=== PATIENT | male | born 1965 | race Caucasian/White ===

== ENCOUNTER 2019-09-17 12:51 | Emergency (ER) | payer OTHER, SELFPAY ==
[2019-09-17 12:54] VITALS: BP 167/115; PULSE 98; RESP 18; TEMP 37.3; O2SAT 99
--- NOTE | 2019-09-17 13:00 | ED.NAVMDI ---
HPI - Nausea/Vomiting/Diarrhea General Chief complaint: Nausea/Vomiting/Diarrhea Stated complaint: abd pain/diarrhea Time Seen by Provider: 09/17/19 13:08 Source: patient and RN notes reviewed Mode of arrival: ambulatory Limitations: no limitations History of Present Illness HPI Narrative: 54 year old male presents to [facility] care with states complaints of diarrhea. nausea with no vomiting since around noon yesterday. Patient states that he has no acute pain to his abdomen. denies any vomiting but states that nausea is continuous, and he reports 12 stools in past 24 hours. Patient states that he felt some dizziness and headache yesterday also, denies any shortness of breath, acute cough, recent travel, and denies any fevers, chills or sweats. Patient has history of hypertension and hypothyroidism but he quit taking his medication several years ago, states has no PCP. Patient also admits to past history of alcohol use and opiate use but states no alcohol for several years and only pain medication was 6 months ago with rotator cuff repair on right shoulder otherwise no use of any opiates. MD elicited complaint: nausea Onset (ago): day(s) (1) Description of vomiting: other (no vomiting nausea) Description of diarrhea: semi-solid Associated nausea: Yes Associated abdominal pain: No Location of pain: other (mid abdominal colicky) Radiation: other (mid abdominal cramping with diarrhea) Pain consistency: colicky (with diarrhea) Quality: cramping Exacerbating factors: other (diarrhea) Relieving factors: medication (immodium has helped some) Associated symptoms: headaches, loss of appetite, nausea/vomiting (nausea only) and other (dizziness) Treatment prior to arrival: immodium Related Data Allergies Allergy/AdvReac Type Severity Reaction Status Date / Time No Known Allergies Allergy Verified 09/17/19 13:08 Review of Systems Review of Systems: Narrative: CONSTITUTIONAL: Denies any fever, chills, or sweats. EYES: Denies visual changes, redness, or discharge. ENT: Denies rhinorrhea, congestion, sore throat, or otalgia. CARDIOVASCULAR: Denies chest pain, palpitations, or edema. RESPIRATORY: Denies cough or dyspnea. GASTROINTESTINAL: states crampy abdominal discomfort only when has stools, nausea,no vomiting, positive for frequent diarrhea the past 24 hours GENITOURINARY: Denies dysuria or hematuria. SKIN: Denies rash or itching. MUSCULOSKELETAL: Denies back pain, joint pain, or myalgia. NEUROLOGIC: positive headache and dizziness yesterday, denies numbness, or weakness. PSYCHIATRIC: Denies anxiety or depression. All systems reviewed & are unremarkable except as noted in HPI and below PMFSH Past Medical History Medical History (Updated 09/17/19 @ 15:01 by Carla Ramos NP) Hypertension Hypothyroid Surgical History Surgical History (Updated 09/17/19 @ 13:26 by Carla Ramos NP) History of arthroscopy of right shoulder Hx of cholecystectomy Social History Social History (Updated 09/17/19 @ 13:26 by Carla Ramos NP) Smoking packs per day: 1 Smoking cigarettes per day: 20.0 Years smoked: 3 Smoking pack-years: 3.00 Smoking status: Current every day smoker Alcohol intake: former Substance use: former Substance use type: opiates Living arrangements: with family Gender identity (if verbalized by the patient): Male Comments At time of signature, agree with nursing past medical, surgical, social history. There is no relevant family history pertinent to the presenting complaint Exam Narrative: Exam Narrative: GENERAL: ill-appearing, well-nourished, and in no acute distress. HEAD: Normocephalic, atraumatic. EYES: PERRLA and EOMI. ENT: Nares clear, no rhinorrhea or epistaxis. Mucous membranes moist.TM's normal with good light reflex, throat pink with no swelling, lesions, or exudate NECK: Supple.no lymphadenopathy CHEST: Clear to auscultation. No respiratory distress.SAO2 99% on room air HEART: Regul
[2019-09-17 13:50] VITALS: BP 170/102
== END 2019-09-17 13:35 | disposition home or self-care (01) ==
PROVIDERS: Emergency Provider Registered Nurse
DX: K52.9 Noninfective gastroenteritis and colitis, unspecified (principal); F17.210 Nicotine dependence, cigarettes, uncomplicated; I10 Essential (primary) hypertension; E03.9 Hypothyroidism, unspecified
CPT/HCPCS: 99213; G0463

== ENCOUNTER 2025-04-09 13:52 | Emergency (ER) | payer BC, SELFPAY ==
--- OUTSIDE RECORDS SUMMARY | 2025-04-06 04:20 | XMS_ITS ---
Author Organization [facility] Address [address] [place] [address] Care Team Providers [employer] Sales Representative Name Role Phone Latasha Esqueda Primary Care Provider Reva Belcher Unavailable [phone] [employer] software, [facility] Unavailable U Bal Ramírez Unavailable [phone] Allergies Allergen (clinical drug ingredient) Drug/Non Drug Allergy documented on EMR Reaction Allergy Type Onset Date Status atorvastatin Atorvastatin Calcium Unknown Drug Allergy Active REASON FOR VISIT CRU Medications Medication SIG (Take, Route, Frequency, Duration) Notes Start Date End Date Status SEROquel 50 MG 1 tablet Orally at bedtime pt states that he takes this when needed Active Cyproheptadine HCl 4 MG 1 tablet Orally Twice a day Not-Taking Nicotine Step 1 21 MG/24HR 1 patch to skin Transdermal Once a day; Duration: 30 day(s) 06/17/2017 Not-Taking Wellbutrin 100 MG 1 tablet Orally every morning; Duration: 30 days 10/11/2016 Not-Taking Vivitrol 380 MG 4 ml Intramuscular once; Duration: 1 dose 02/26/2017 Not-Taking Lisinopril 10 MG 1 tablet Orally Once a day; Duration: 30 day(s) 11/18/2016 Not-Taking Melatonin 5 MG 1 tablet at bedtime as needed Orally Once a day; Duration: 30 days 04/06/2025 Active Meloxicam 15 MG 1 tablet Orally Once a day with food; Duration: 30 day(s) 10/21/2017 Not-Taking Nicotine 21 MG/24HR 1 patch to skin. Transdermal Once a day, removing at bedtime; Duration: 28 days 04/06/2025 Active hydrOXYzine Pamoate 25 MG 1-2 capsules Orally every 4 hours as needed for anxiety, agitation, or inability to sleep. Do not give within 4 hours of diphenhydramine.; Duration: 30 days 04/06/2025 Active Multi Vitamin - 1 tablet Orally Once a day; Duration: 30 days 04/06/2025 Active Nicotine Polacrilex 4 MG 1 lozenge as needed for nicotine cravings Mouth/Throat Up to once per hour (maximum of 15 lozenges per day); Duration: 7 days 04/06/2025 Active Levothyroxine Sodium 25 MCG 1 tablet on an empty stomach in the morning Orally Once a day; Duration: 30 day(s) 08/11/2017 Not-Taking Social History Tobacco Use: Social History Observation Description Date Details (start date - stop date) Never Smoker NA - NA Tobacco Control (Standard) Question Answer Notes Tobacco use: Nonsmoker Section Notes: Patient reports he had been 25 years before it ended in divorce 3 months ago. Problems Problem Type SNOMED Code ICD Code Onset Dates Problem Status W/U Status Risk Notes Problem Physical examination, complete (82301825) Adult general medical examination (Z00.00) Active confirmed Problem Overweight (847718069) Over weight (E66.3) Active confirmed Vital Signs Weight 178.08 lbs 04/06/2025 Height 70 in 04/06/2025 BMI 25.55 kg/m2 04/06/2025 Blood pressure systolic 138 mm Hg 04/06/20 25 Blood pressure diastolic 90 mm Hg 025 Heart Rate 107 /min 04/06/2025 Oximetry 99 % 04/06/2025 Temperature 98.1 degrees Fahrenheit 04/06/20 25 Respiratory Rate 20 /min 04/06/2025 Encounters Encounter Location Date Provider Diagnosis [place] [address] [facility] [place] [place] [address] 04/06/2025 Bal Pond Adult general medica l examination Z00.00 ; Tobacco dependence F17.200 ; Anxiety F41.9 ; Alcohol use disorder F10.99 ; Hypothyroidism, unspecified type E03.9 ; Essential hypertension I10 and Over weight E66.3 Assessments Encounter Date Diagnosis (ICD Code) Assessment Notes Treatment Notes Treatment Clinical Notes Section Notes 04/06/2025 Adult general medical examination (ICD-10 - Z00.00) Admit to the Mental Health/Crisis Residential Unit and initiate standing/protocol orders: The following PRN medications may be self-administered by patients under the supervision of approved staff or administered by nursing staff: Ibuprofen 200mg, 2-4 tablets by mouth (with food) every 6 hours as needed for pain (unless on lithium). (NOTE: Ibuprofen and acetaminophen may be given together, but alternating is recommended for continuous pain relief. Guaifenesin 400 mg, 1 tablet by mouth every four hours as needed for cough and chest congestion (take with large glass of water). Loratadine 10 mg, 1 tablet by mouth daily as needed for allergies, watery itchy eyes, or sinus drainage. Throat Lozenges, up to 4 tablets by mouth every three to four hours as needed for sore throat. Antacid tablets, 1-2 tablets by mouth every one to two hours as needed for indigestion or heart burn. If the client prefers liquid, could use: Liquid Antacid : 1 ounce by mouth up to four times daily as needed for indigestion or heartburn Omeprazole 20mg, 1 capsule by mouth once daily for 14 days for frequent heartburn (frequent heartburn is more than 2 episodes per week). Do not exceed 14 days. Do not give to client already taking a proton-pump inhibitor: esomeprazole (Nexium), lansoprazole (Prevacid), pantoprazole (Protonix), rabeprazole (Aciphex), dexlansoprazole (Dexilant) Zofran ODT disintegrating (under the tongue) 4 mg, 1-2 tablets every 8 hours as needed for nausea/vomiting. Milk of Magnesia (MOM): 1 ounce (30 milliliters) by mouth every day as needed for constipation. OR Miralax: Stir and fully dissolve 17 grams (1 packet or 1 capful to measured line) in any 4 to 8 ounces of beverage then drink once daily for constipation. Do not use for more than 7 days. OR Docusate 100 mg, 1 capsule twice daily as needed for constipation Hydrocortisone 1% Cream, apply topically (to the skin) to the affected area up to three times daily as needed for itching or inflammation (avoid eyes and genitals). 2% Antifungal Cream, apply topically (to the skin) as directed as needed to affected areas for athlete's foot or jock itch. Triple Antibiotic Ointment, apply topically (to the skin) up to three times daily as needed for minor cuts and scrapes. Carmex or Chapstick, apply topically (to the skin) as needed for chapped lips and skin. Orajel, apply to affected areas as needed for mouth or tooth pain. Lubricating Eye Drops, instill 1-2 drops to the affected eye(s) as needed for dry/irritated eye(s). Hemorrhoid medications, apply to affected area according to directions as needed for hemorrhoid discomfort and itch. Nix (Permethrin 1%) cream 2 ounces, apply topically (to the skin) as directed as needed for head lice. Sunscreen 30 SPF, Apply to exposed skin prior to exposure to sun. The following PRN medications must be approved by nursing staff before self-administration by patients: Diphenhydramine 25 mg, 2 tablets by mouth every 4 hours as needed for allergic reaction or itchy rash. Caution: Do not use hydroxyzine within 4 hours of diphenhydramine and vice versa. Loperamide 2 mg capsules, may give two capsules by mouth for the initial dose, followed by one capsule up to 3 times a day as needed for diarrhea. Acetaminophen 500 mg, 1 - 2 tablets by mouth every six hours as needed for pain. (NOTE: Ibuprofen and acetaminophen may be given together, but alternating is recommended for continuous pain relief). Oxygen-May administer oxygen 2L/min via nasal cannula if O2 saturation is less than 92%, AND client complains of shortness of breath. Target O2 saturation is 94-98%. Caution: Remember too much oxygen can be detrimental to a client with COPD. Oxygen is a drug and should be delivered by trained staff only. Nurses may remove superficial splinters and sutures from skin lacerations. May apply gauze or bandages to any weeping wounds. Contact nursing if there is pus, a foul odor, increased pain/redness/swelli ng, or if soaking through bandages. 04/06/2025 Tobacco dependence (ICD-10 - F17.200) 04/06/2025 Anxiety (ICD-10 - F41.9) 04/06/2025 Alcohol use disorder (ICD-10 - F10.99) 04/06/2025 Hypothyroidism, unspecified type (ICD-10 - E03.9) 04/06/2025 Essential hypertension (ICD-10 - I10) Patient hesitant to restart medication. Will need BPs taken twice daily, morning and night for the next 7 days. Patient needs to follow up with me in 7 days for BP check and educated him on importance of restarting medication if BPs elevated. 04/06/2025 Over weight (ICD-10 - E66.3) 04/06/2025 Other Continue treatment as recommended by [facility] Crisis [facility]idential Unit staff. Encouraged patient to obtain routine medical care with patient's own primary care provider or establish as a patient at [facility] if no current primary care provider. Plan Of Treatment Medication Medication Name Sig Start Date Stop Date Notes SEROquel 50 MG 1 tablet Orally at bedtime pt states that he takes this when needed Melatonin 5 MG 1 tablet at bedtime as needed Orally Once a day; Duration: 30 days 04/06/2025 Nicotine 21 MG/24HR 1 patch to skin. Transdermal Once a day, removing at bedtime; Duration: 28 days 04/06/2025 hydrOXYzine Pamoate 25 MG 1-2 capsules Orally every 4 hours as needed for anxiety, agitation, or inability to sleep. Do not give within 4 hours of diphenhydramine.; Duration: 30 days 04/06/2025 Multi Vitamin - 1 tablet Orally Once a day; Duration: 30 days 04/06/2025 Nicotine Polacrilex 4 MG 1 lozenge as needed for nicotine cravings Mouth/Throat Up to once per hour (maximum of 15 lozenges per day); Duration: 7 days 04/06/2025 Treatment Notes Assessment Notes Adult general medical examination Admit to the Mental Health/Crisis Residential Unit and initiate standing/protocol orders: The following PRN medications may be self-administered by patients under the supervision of approved staff or administered by nursing staff: Ibuprofen 200mg, 2-4 tablets by mouth (with food) every 6 hours as needed for pain (unless on lithium). (NOTE: Ibuprofen and acetaminophen may be given together, but alternating is recommended for continuous pain relief. Guaifenesin 400 mg, 1 tablet by mouth every four hours as needed for cough and chest congestion (take with large glass of water). Loratadine 10 mg, 1 tablet by mouth daily as needed for allergies, watery itchy eyes, or sinus drainage. Throat Lozenges, up to 4 tablets by mouth every three to four hours as needed for sore throat. Antacid tablets, 1-2 tablets by mouth every one to two hours as needed for indigestion or heart burn. If the client prefers liquid, could use: Liquid Antacid : 1 ounce by mouth up to four times daily as needed for indigestion or heartburn Omeprazole 20mg, 1 capsule by mouth once daily for 14 days for frequent heartburn (frequent heartburn is more than 2 episodes per week). Do not exceed 14 days. Do not give to client already taking a proton-pump inhibitor: esomeprazole (Nexium), lansoprazole (Prevacid), pantoprazole (Protonix), rabeprazole (Aciphex), dexlansoprazole (Dexilant) Zofran ODT disintegrating (under the tongue) 4 mg, 1-2 tablets every 8 hours as needed for nausea/vomiting. Milk of Magnesia (MOM): 1 ounce (30 milliliters) by mouth every day as needed for constipation. OR Miralax: Stir and fully dissolve 17 grams (1 packet or 1 capful to measured line) in any 4 to 8 ounces of beverage then drink once daily for constipation. Do not use for more than 7 days. OR Docusate 100 mg, 1 capsule twice daily as needed for constipation Hydrocortisone 1% Cream, apply topically (to the skin) to the affected area up to three times daily as needed for itching or inflammation (avoid eyes and genitals). 2% Antifungal Cream, apply topically (to the skin) as directed as needed to affected areas for athlete's foot or jock itch. Triple Antibiotic Ointment, apply topically (to the skin) up to three times daily as needed for minor cuts and scrapes. Carmex or Chapstick, apply topically (to the skin) as needed for chapped lips and skin. Orajel, apply to affected areas as needed for mouth or tooth pain. Lubricating Eye Drops, instill 1-2 drops to the affected eye(s) as needed for dry/irritated eye(s). Hemorrhoid medications, apply to affected area according to directions as needed for hemorrhoid discomfort and itch. Nix (Permethrin 1%) cream 2 ounces, apply topically (to the skin) as directed as needed for head lice. Sunscreen 30 SPF, Apply to exposed skin prior to exposure to sun. The following PRN medications must be approved by nursing staff before self-administration by patients: Diphenhydramine 25 mg, 2 tablets by mouth every 4 hours as needed for allergic reaction or itchy rash. Caution: Do not use hydroxyzine within 4 hours of diphenhydramine and vice versa. Loperamide 2 mg capsules, may give two capsules by mouth for the initial dose, followed by one capsule up to 3 times a day as needed for diarrhea. Acetaminophen 500 mg, 1 - 2 tablets by mouth every six hours as needed for pain. (NOTE: Ibuprofen and acetaminophen may be given together, but alternating is recommended for continuous pain relief). Oxygen-May administer oxygen 2L/min via nasal cannula if O2 saturation is less than 92%, AND client complains of shortness of breath. Target O2 saturation is 94-98%. Caution: Remember too much oxygen can be detrimental to a client with COPD. Oxygen is a drug and should be delivered by trained staff only. Nurses may remove superficial splinters and sutures from skin lacerations. May apply gauze or bandages to any weeping wounds. Contact nursing if there is pus, a foul odor, increased pain/redness/swelling, or if soaking through bandages. Essential hypertension Patient hesitant to restart medication. Will need BPs taken twice daily, morning and night for the next 7 days. Patient needs to follow up with me in 7 days for BP check and educated him on importance of restarting medication if BPs elevated. Other Continue treatment as recommended by [facility] Crisis Res[facility] staff. Encouraged patient to obtain routine medical care with patient's own primary care provider or establish as a patient at [facility] if no current primary care provider. Future Test Test Name Order Date CBC With Differential/Platelet* 04/06/20 CMP 14 Comprehensive Metabolic Panel* QuantiFERON-TB Gold Plus ([id number]) 2024 TSH+Free T4 04/06/2025 Next Appt Details Follow Up: 1 Week, Reason: Provider Name:Bal snow, 04/11/2025 02:00:00 PM, [address], [place], [address], Provider Name:Naye Baldwin Titus ers, 04/13/2025 11:00:00 AM, [address], [place], [address], Progress Notes * Fercho AMANDADOB:1965 ( 59 yo M)Acc No.[id number]:04/06/2025 UNLOCKED PROGRESS NOTE Patient: Fercho GUEVARA Provider: Ester Pond APN :1965 A ge:59 Y S ex:Male Date:04/06/2025 Address:[facility] [address], [facility] Pcp:Latasha Esqueda Check In:09:02 AM [employer] Subjective: * Chief Complaints: * 1 . CRU MH. * HPI: S ummary: Presents for physical as patient is admitted to Residential Unit at [facility]. Patient presents from: [place], lives by himself Concerns of: ETOH for past 10 years, binges Chronic Conditions: HTN, dep, anx, hypothyroid, ETOH use, ulnar neuropathy bilateral Recent Hospitalizations: [place] last week for 2 days for falling in his tub while intoxicated. PCP: denies Psych provider: denies Drug/ETOH use: ETOH usually 6 double shots of fireball. Last time used: yesterday (1 double shot), Friday (3 double shots) Route: oral Previous Tx: [place] years ago Withdrawal s/s: tremors Cigarette/vaping use: 1 PPD Sexual activity: denies Denies SI/HI Patient states that he does not want to take medications and does not believe he needs meds. I nterim History: Emergency room visit Y es. W as hospitalized Y es.? D epression Screening: PHQ-9 L ittle interest or pleasure in doing things S everal days, F eeling down, depressed, or hopeless S everal days, T rouble falling or staying asleep, or sleeping too much S everal days, F eeling tired or having little energy N early every day, P oor appetite or overeating S everal days, F eeling bad about yourself or that you are a failure, or have let yourself or your family down N early every day, T rouble concentrating on things, such as reading the newspaper or watching television N early every day, M oving or speaking so slowly that other people could have noticed; or the opposite, being so fidgety or restless that you have been moving around a lot more than usual S everal days,?Thoughts that you would be better off or of hurting yourself in some way N ot at all, Total Score 1 4, I nterpretation M oderate Depression. I ntervention D epression Screening Findings P ositive, F ollow-Up for Depression P diallo is admitted to a [facility] unit where their mental health is monitored - unit nursing staff have access to this encounter note. S creening: [place] Suicide Severity Rating Scale (LF) D o you want to initiate with S creener form, 1 . Wish to be : Have you wished you were or wished you could go to sleep and not wake up? N o, 2 . Suicidal Thoughts: Have you actually had any thoughts of killing yourself? N o, 6 . Suicide Behavior Question: Have you ever done anything,started to do anything, or prepared to end your life? N o, I nterpretation: L ow Risk. P re[facility] follow-up: Action Plans for Clinical Quality Measures: A dult BMI and follow-up: O ther (see notes). patient to discuss with provider, C olorectal Cancer Screening: D iscussed need for colorectal cancer screening. Patient declined. patient declines, D epression Screening and Follow-up: O ther (see notes). patient to discuss with provider, H IV Screening: D iscussed need for HIV screening. Patient declined. patient declines, T obacco Screening and Cessation: O ther (see notes). patient to discuss with provider. . C SSRS Interpretation and Follow Up Plan: CSSRS Interpretation and Follow Up Plan C SSRS Screen documented using SF Y es, R isk Disposition from SF L ow - No Follow Up Plan Required, F ollow Up Plan N o Follow Up Plan required at this time., T imeframe of Screening T diana.? * ROS: B asic ROS: Denies S eizures. D enies S uicidal Thoughts. ? P sych ROS: Constitutional D enies. E yes D enies. E ars/Nose/Mouth/Throat D enies. R espiratory D enies. C ardiovascular D enies. G I?Denies. G U D enies. M usculoskeletal D enies. N eurological D enies. Integumentary D enies. H ematological/Lymphatic D enies. * Medical History: H ypertension, Gallstones, Depression, Anxiety, Alcohol abuse, Hypothyroidism. * Surgical History: g allbladder removed 2016. * Hospitalization/Major Diagno stic Procedure: [facility] - gallstones 08/2016. * Family History: F ather: . M other: alive. 1 brother(s) , 2 sister(s) . 1 son(s) , 1 daughter(s) - healthy. . father- age 69- kidney failure sister- HTN brother- HTN Patient denies any family history of mental illness or suicide. Patient reports his father drank alcohol daily. * [facility] Social History: L iving Arrangement L iving Arrangement: I ndependent Living, I s this a supportive environment? Y es. A lcohol Use A lcohol Use Frequency: M onthly or less last drink 7 weeks ago. I llicit Substance Usage I llicit Substance Usage: N o. E mployment Status E mployment Status: U nemployed. T obacco Use - do not use T obacco Use: C urrent, T ype of Tobacco: C igarettes, Q uanity per day: U p to .5 pack, D uration: 1 Years, Q uit Attempts in the past: N o, I nterested in quitting: Y es.? P ast Medication Use: D o you use nicotine other than cigarettes?: Yes. T obacco Use: T obacco Control (Standard) T obacco use: N onsmoker. D rugs/Alcohol: D o you smoke marijuana?: Denies. Do you drink alcohol?: Denies. M iscellaneous: M ethod of learning P referred method of learning: D iscussion,Demonstration,Hearing.? P atient reports he had been 25 years before it ended in divorce 3 months ago. * Medications: T aking SEROquel 50 MG Tablet 1 tablet Orally at bedtime , Notes to Pharmacist: pt states that he takes this when needed, Not-Taking Levothyroxine Sodium 25 MCG Tablet 1 tablet on an empty stomach in the morning Orally Once a day , Not-Taking Lisinopril 10 MG Tablet 1 tablet Orally Once a day , Not-Taking Meloxicam 15 MG Tablet 1 tablet Orally Once a day with food , Not-Taking Cyproheptadine HCl 4 MG Tablet 1 tablet Orally Twice a day , Not-Taking Nicotine Step 1 21 MG/24HR Patch 24 Hour 1 patch to skin Transdermal Once a day , Not-Taking Wellbutrin 100 MG Tablet 1 tablet Orally every morning , Not-Taking Vivitrol 380 MG Suspension Reconstituted 4 ml Intramuscular once , Medication List reviewed and reconciled with the patient * Allergies: A torvastatin Calcium. Objective: * Vitals: I nitials: HM, Wt:178.08, Ht: 70, BMI:25.55, BP:138/90, HR:107, Oxygen sat %:99, Temp:98.1, RR:20, Pain scale:5. * Examination: G eneral Examination: GENERAL APPEARANCE: a lert, in no acute distress. HEAD: n ormocephalic, atraumatic. EYES: B OTH EYES, sclera anicteric, pupils equal, round, reactive to light and accommodation , extraocular movement intact (EOMI). EARS B OTH EARS, normal. NOSE: n rajan patent. ORAL CAVITY: m ucosa moist. THROAT: p harynx normal. NECK/THYROID: n christie supple , no thyromegaly. SKIN: w arm and dry, no rashes, no suspicious lesions. HEART: r egular rate and rhythm, S1, S2 normal, no S3, S4, no murmurs, rubs, gallops. LUNGS: r espirations regular and easy, clear to auscultation bilaterally, no wheezes, rales, rhonchi, clear anteriorly and posteriorly, good air movement. ABDOMEN: b owel sounds present, soft, nontender, nondistended, no masses palpable, no organomegaly . EXTREMITIES: n o edema. PERIPHERAL PULSES: 2 + throughout. NEUROLOGIC: n onfocal, gait normal. PSYCH: a ppropriate affect. Assessment: * Assessment: 1. A dult general medical examination - Z00.00 (Primary) 2 . T obacco dependence - F17.200 3 . A nxiety - F41.9 4 . A lcohol use disorder - F10.99 5 . H ypothyroidism, unspecified type - E03.9 6 . Essential hypertension - I10 7 . O cornelio weight - E66.3 Plan: * Treatment: Value Reference Range B AC 0.000 ?LAB: QuantiFERON-TB Gold Plus ([id number]) (Ordered for 04/06/2025) (Collection Date & Time - 04/06/2025) ?LAB: CMP 14 Comprehensive Metabolic Panel* (Ordered for 04/06/2025) (Collection Date & Time - 04/06/2025) ?LAB: CBC With Differential/Platelet* (Ordered for 04/06/2025) (Collection Date & Time - 04/06/2025) ?LAB: 14 Panel Urine Drug Screen (Ordered for 04/06/2025) (Collection Date & Time - 04/06/2025)* Value Reference Range T HC pos * C OC neg * M OP (OPI) neg * A MP neg * M ET neg * B AR neg * B ZO pos * M DMA neg * M TD neg * O XY neg * P CP neg * B UP neg * T CA neg * F TY neg Notes: Admit to the Mental Health/Crisis Residential Unit and initiate standing/protocol orders: The following PRN medications may be self-administered by patients under the supervision of approved staff or administered by nursing staff: * Ibuprofen 200mg, 2-4 tablets by mouth (with food) every 6 hours as needed for pain (unless on lithium). (NOTE: Ibuprofen and acetaminophen may be given together, but alternating is recommended for continuous pain relief. * Guaifenesin 400 mg, 1 tablet by mouth every four hours as needed for cough and chest congestion (take with large glass of water). * Loratadine 10 mg, 1 tablet by mouth daily as needed for allergies, watery itchy eyes, or sinus drainage. * Throat Lozenges, up to 4 tablets by mouth every three to four hours as needed for sore throat. * Antacid tablets, 1-2 tablets by mouth every one to two hours as needed for indigestion or heart burn. If the client prefers liquid, could use: Liquid Antacid : 1 ounce by mouth up to four times dailyas needed for indigestion or heartburn * Omeprazole 20mg, 1 capsule by mouth once daily for 14 days for frequent heartburn (frequent heartburn is more than 2 episodes per week). Do not exceed 14 days. Do not give to client already taking a proton-pump inhibitor: esomeprazole (Nexium), lansoprazole (Prevacid), pantoprazole (Protonix), rabep razole (Aciphex), dexlansoprazole (Dexilant) * Zofran ODT disintegrating (under the tongue) 4 mg, 1-2 tablets every 8 hours as needed for nausea/vomiting. * Milk of Magnesia (MOM): 1 ounce (30 milliliters) by mouth every day as needed for constipation.ORMiralax: Stir and fully dissolve 17 grams (1 packet or 1 capful to measured line) in any 4 to 8 ounces of beverage then drink once daily for constipation. Do not use for more than 7 days.ORDocusate 100 mg, 1 capsule twice daily as needed for constipation * Hydrocortisone 1% Cream, apply topically (to the skin) to the affected area up to three times dailyas needed for itching or inflammation (avoid eyes and genitals). * 2% Antifungal Cream, apply topically (to the skin) as directed as needed to affected areas for athlete's foot or jock itch. * Triple Antibiotic Ointment, apply topically (to the skin) up to three times daily as needed for minor cuts and scrapes. * Carmex or Chapstick, apply topically (to the skin) as needed for chapped lips and skin. * Orajel, apply to affected areas as needed for mouth or tooth pain. * Lubricating Eye Drops, instill 1-2 drops to the affected eye(s) as needed for dry/irritated eye(s). * Hemorrhoid medications, apply to affected area according to directions as needed for hemorrhoid discomfort and itch. * Nix (Permethrin 1%) cream 2 ounces, apply topically (to the skin) as directed as needed for head lice. * Sunscreen 30 SPF, Apply to exposed skin prior to exposure to sun. The following PRN medications must be approved by nursing staff before self- administration by patients: * Diphenhydramine 25 mg, 2 tablets by mouth every 4 hours as needed for allergic reaction or itchy rash.Caution: Do not use hydroxyzine within 4 hours of diphenhydramine and vice versa. * Loperamide 2 mg capsules, may give two capsules by mouth for the initial dose, followed by one capsule up to 3 times a day as needed for diarrhea. * Acetaminophen 500 mg, 1 - 2 tablets by mouth every six hours as needed for pain. (NOTE: Ibuprofen and acetaminophen may be given together, but alternating is recommended for continuous pain relief). * Oxygen-May administer oxygen 2L/min via nasal cannula if O2 saturation is less than 92%, AND clientcomplains of shortness of breath. Target O2 saturation is 94-98%.Caution: Remember too much oxygen can be detrimental to a client with COPD. Oxygen is a drug and should be delivered by trained staff only. Nurses may remove superficial splinters and sutures from skin lacerations. May apply gauze or bandages to any weeping wounds. Contact nursing if there is pus, a foul odor, increased pain/redness/swelling, or if soaking through bandages. ??2.?Hypothyroidism, unspecified type?LAB: TSH+Free T4 (Ordered for 04/06/2025) (Collection Date & Time - 04/06/2025)3.?Essential hypertension? Notes: Patient hesitant to restart medication. Will need BPs taken twice daily, morning and night for the next 7 days. Patient needs to follow up with me in 7 days for BP check and educated him on importance of restarting medication if BPs elevated.??4.?Others? Notes:Continue treatment as recommended by [facility] staff.Encouraged patient to obtain routine medical care with patient's own primary care provider or establish as a patient at [facility] if no current primary care provider.?? * Recommended Wellness and Pre vention Guidelines: * S ector brumfield L ast Done N ext Due A ction Taken N ONCOMPLIANT A lcohol use screening - 1 - - N ONCOMPLIANT A llergy List Verification - 1 - - N ONCOMPLIANT B P control in HTN (140/90) 0 11/18/2016 1 - - N ONCOMPLIANT B hermes Mass Index - 1 - - N ONCOMPLIANT C holesterol screen (genl pop) 0 07/28/2017 1 - - N ONCOMPLIANT D epression followup 1 1 - - N ONCOMPLIANT H IV screening - 1 - - N ONCOMPLIANT I nfluenza vaccine (over 50) - 1 - - N ONCOMPLIANT S moking cessation intervention 1 08/18/2016 1 - - * Procedure Codes: 3 008F BODY MASS INDEX DOCD * Preventive Medicine: Counseling: S MOKING: P atient counselled on the dangers of tobacco use and urged to quit. 1 .. C are goal follow-up plan: B [facility] management provided Y es,?Above Normal BMI Follow-up L ifestyle education regarding diet. * Follow Up: 1 Week * * Electronic signature of Jose Elias Pond on 04/09/2025 at 01:54 PM CDT Sign off status: Pending * Provider: Ester Pond APN Date: Generated for Ellis morales/Wiliam/You on: 01:54 PM CDT History and Physical Notes * HPI (History of Present Illness) Category Sub-Category Detail Notes Category Not es Interim History Was hospitalized Yes Emergency room visit Yes Depression Screening PHQ-9 Little inte rest or pleasure in doing things: Several days Feeling down, depressed, or hopeless: Se veral days Trouble falling or staying asleep, or sl eeping too much: Several days Feeling tired or having little energy: N early every day Poor appetite or overeating: Several day s Feeling bad about yourself o r that you are a failure, or have let yourself or your family down: Nearly every day Trouble concentrating on thi ngs, such as reading the newspaper or watching television: Nearly every day Moving or speaking so slowly that other people could have noticed; or the opposite, being so fidgety or restless that you have been moving around a lot more than usual: Several days Thoughts that you would be b yajaira off or of hurting yourself in some way: Not at all Total Score: 14 Interpretation: Moderate Depression Intervention Depression Screening Findings: P ositive Follow-Up for Depression: Pieter gonzalez is admitted to a [place] residential unit where their mental health is monitored - unit nursing staff have access to this encounter note Summary Presents for physical as patient is admitted to Residential Unit at [place]. Patient presents from: [place], lives by himself Concerns of: ETOH for past 10 years, binges Chronic Conditions: HTN, dep, anx, hypothyroid, ETOH use, ulnar neuropathy bilateral Recent Hospitalizations: [place] last week for 2 days for falling in his tub while intoxicated. PCP: denies Psych provider: denies Drug/ETOH use: ETOH usually 6 double shots of fireball. Last time used: yes (1 double shot), Friday (3 double shots) Route: oral Previous Tx: [place] years ago Withdrawal s/s: tremors Cigarette/vaping use: 1 PPD Sexual activity: denies Denies SI/HI Patient states that he does not want to take medications and does not believe he needs meds. Screening [place] Suicide Severity Rating Scale (LF) Do you want to initiate with: Screener form 1. Wish to be : Have you wished you were or wished you could go to sleep and not wake up?: No 2. Suicidal Thoughts: Have you actually had any thoughts of killing yourself?: No 6. Suicide Behavior Question: Have you ever done anything,started to do anything, or prepared to end your life?: No Interpretation:: Low Risk Preventative Health and Wellness follow-up Action Plans for Clinical Quality Measures: Adult BMI and follow-up:: Other (see notes). patient to discuss with provider . Colorectal Cancer Screening: : Discussed need for colorectal cancer screening. Patient declined. patient declines Depression Screening and Fol low-up:: Other (see notes). patient to discuss with provider HIV Screening:: Discussed ne ed for HIV screening. Patient declined. patient declines Tobacco Screening and Cessation:: Other (see notes). patient to discuss with provider CSSRS Interpretation and Follow Up Plan CSSRS Interpretation and Follow Up Plan CSSRS Screen documented using SF: Yes Risk Disposition from SF: Low - No Follo w Up Plan Required Follow Up Plan: No Follow Up Plan requir ed at this time. Timeframe of Screening: Today Examination Category Sub-Category Detail Notes Category Not es General Examination GENERAL APPEARANCE: alert, in no a cute distress HEAD: normocephalic, atrau matic EYES: BOTH EYES, sclera an icteric, pupils equal, round, reactive to light and accommodation , extraocular movement intact (EOMI) EARS BOTH EARS, normal NOSE: nares patent THROAT: pharynx normal NECK/THYROID: neck supple , no thy romegaly HEART: regular rate and rhy thm, S1, S2 normal, no S3, S4, no murmurs, rubs, gallops LUNGS: respirations regular and easy, clear to auscultation bilaterally, no wheezes, rales, rhonchi, clear anteriorly and posteriorly, good air movement ABDOMEN: bowel sounds present , soft, nontender, nondistended, no masses palpable, no organomegaly NEUROLOGIC: nonfocal, gait damien l SKIN: warm and dry, no gino hes, no suspicious lesions EXTREMITIES: no edema PERIPHERAL PULSES: 2+ throughout PSYCH: appropriate affect ORAL CAVITY: mucosa moist
--- OUTSIDE RECORDS SUMMARY | 2025-04-08 05:20 | XMS_ITS ---
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 Name Role Phone Latasha Esqueda Primary Care Provider Reva Belcher Unavailable [phone] [employer], [facility] Unavailable U Dianna Villegas Unavailable [phone] Allergies Allergen (clinical drug ingredient) Drug/Non Drug Allergy documented on EMR Reaction Allergy Type Onset Date Status atorvastatin Atorvastatin Calcium Unknown Drug Allergy Active REASON FOR VISIT MAT NewPT - Alcohol & Tobacco Medications Medication SIG (Take, Route, Frequency, Duration) Notes Start Date End Date Status SEROquel 50 MG 1 tablet Orally at bedtime; Duration: 10 days pt states that he takes this when needed Active Naltrexone HCl 50 MG 1 tablet Orally Onc e a day; Duration: 30 day(s) 04/08/2025 Active Wellbutrin SR 150 MG 1 tablet in the morning Orally Once a day; Duration: 30 day(s) 04/08/2025 Active Multi Vitamin - 1 tablet Orally Once a day; Duration: 30 days 04/06/2025 Active Nicotine Polacrilex 4 MG 1 lozenge as needed for nicotine cravings Mouth/Throat Up to once per hour (maximum of 15 lozenges per day); Duration: 7 days 04/06/2025 Active Nicotine 21 MG/24HR 1 patch to skin. Transdermal Once a day, removing at bedtime; Duration: 28 days 04/06/2025 Active Melatonin 5 MG 1 tablet at bedtime as needed Orally Once a day; Duration: 30 days 04/06/2025 Active hydrOXYzine Pamoate 25 MG 1-2 capsules Orally every 4 hours as needed for anxiety, agitation, or inability to sleep. Do not give within 4 hours of diphenhydramine.; Duration: 30 days 04/06/2025 Active Social History Tobacco Use: Social History Observation Description Date Details (start date - stop date) Current Smoker NA - NA PRAPARE Question Answer Notes Date Completed/Updated: 04/06/2025 What is your current housing situation? I have h ousing Are you worried about losing your housing? Yes What is the highest level of school that you have finished? 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 Check all that apply Food,Clothing,Utilities Has lack of transportation k ept you from medical appointments, meetings, work or from getting things needed for daily living? No How often do you see or talk to people that you care about and feel close to? (For example: talking to friends on the phone, visiting friends or family, going to religious or club meetings) 1 or 2 times a week How stressed are you? Stress is when someone feels tense, nervous, anxious, or can\t sleep at night because their mind is troubled Very much In the past year have you sp ent more than 2 nights in a row in a halfway, intermediate, fci center, or juvenile correctional facility? No Are you a refugee? I choose not to answer this q uestion What country are you from? I choose not to answe r this question Do you feel physically and e motionally safe where you currently live? Yes In the past year, have you b een afraid of your partner or ex-partner? No PRAPARE Score: 9 Enabling Services Provided? Yes Please specify Case Management Asse ssment First Visit Tobacco Control (Standard) Question Answer Notes Tobacco use: Current smoker How often do you smoke cigarettes? Every day How many cigarettes a day do you smoke? 21-30 How soon after you wake up d o you smoke your first cigarette? Within 5 minutes Are you interested in quitting? Thinking about q uitting Additional Findings: Tobacco user Heavy cigarett e smoker (20-39 cigs/day) Section Notes: Patient reports he had been 25 years before it ended in divorce 3 months ago. 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 Living situation: Lives alone Alcohol use: Binge drinking three to five days at a time, periods of abstinence, last drink before admission Vital Signs Blood pressure systolic 144 mm Hg 04/08/20 25 Blood pressure diastolic 104 mm Hg 025 Heart Rate 116 /min 04/08/2025 Oximetry 97 % 04/08/2025 Respiratory Rate 18 /min 04/08/2025 Temperature 98.4 degrees Fahrenheit 04/08/20 25 Weight 177.4 lbs 04/08/2025 Height 70 in 04/08/2025 BMI 25.45 kg/m2 04/08/2025 Encounters Encounter Location Date Provider Diagnosis [facility] [address] [place] [address] 04/08/2025 Bayleeroyce Bess Over weight E66.3 ; Alcohol use disorder F10.99 and Depressive disorder F32.9 Assessments Encounter Date Diagnosis (ICD Code) Assessment Notes Treatment Notes Treatment Clinical Notes Section Notes 04/08/2025 Over weight (ICD-10 - E66.3) 04/08/2025 Alcohol use disorder (ICD-10 - F10.99) Binge drinking episodes with periods of abstinence. Recent drinking prior to admission. No current cravings in controlled environment. Prior hospitalization related to alcohol use. Expressed concern about relapse and impact on family relationships. - Discussed option of naltrexone or Vivitrol for relapse prevention. - Provided educational pamphlet on Vivitrol. - Client opted to start oral naltrexone. - Referral to psychiatry ([facility]) for ongoing management. 04/08/2025 Depressive disorder (ICD-10 - F32.9) Severe depression with frequent crying and lack of motivation. History of antidepressant use (Zoloft, Wellbutrin). Expressed interest in restarting Wellbutrin today. - Started Wellbutrin SR 150mg for depression. - Referral to psychiatry ([facility]) for further evaluation and management. 04/08/2025 Other Discussed medication side effects, adverse effects, risks, benefits, as well as interactions. Encouraged non-use of alcohol. Recommended participation in recovery groups and/or counseling services. May contact office with questions or concerns. Plan Of Treatment Medication Medication Name Sig Start Date Stop Date Notes Naltrexone HCl 50 MG 1 tablet Orally Onc e a day; Duration: 30 day(s) 04/08/2025 Wellbutrin SR 150 MG 1 tablet in the mor vera Orally Once a day; Duration: 30 day(s) 04/08/2025 Treatment Notes Assessment Notes Alcohol use disorder Binge drinking episodes with periods of abstinence. Recent drinking prior to admission. No current cravings in controlled environment. Prior hospitalization related to alcohol use. Expressed concern about relapse and impact on family relationships. - Discussed option of naltrexone or Vivitrol for relapse prevention. - Provided educational pamphlet on Vivitrol. - Client opted to start oral naltrexone. - Referral to psychiatry ([facility]) for ongoing management. Depressive disorder Severe depression with frequent crying and lack of motivation. History of antidepressant use (Zoloft, Wellbutrin). Expressed interest in restarting Wellbutrin today. - Started Wellbutrin SR 150mg for depression. - Referral to psychiatry ([facility]) for further evaluation and management. Other Discussed medication side effects, adverse effects, risks, benefits, as well as interactions. Encouraged non-use of alcohol. Recommended participation in recovery groups and/or counseling services. May contact office with questions or concerns. 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 Was hospitalized Y es. D epression Screening: PHQ-9 L ittle interest or pleasure in doing things?Several days F eeling down, depressed, or hopeless N early every day T rouble falling or staying asleep, or sleeping too much S everal days F eeling tired or having little energy N early every day P oor appetite or overeating N early every day F eeling bad about yourself or that you are a failure, or have let yourself or your family down N early every day T rouble concentrating on things, such as reading the newspaper or watching television N early every day M oving or speaking so slowly that other people could have noticed; or the opposite, being so fidgety or restless that you have been moving around a lot more than usual N early every day T houghts that you would be better off or of hurting yourself in some way N ot at all T otal Score 2 0 I nterpretation S evere Depression Intervention D epression Screening Findings P ositive F ollow-Up for Depression Nikunj landrum is admitted to a [facility] unit where their mental health is monitored - unit nursing staff have access to this encounter note S creening: [place] Suicide Severity Rating Scale (LF) D o you want to initiate with S creener form 1 . Wish to be : Have you wished you were or wished you could go to sleep and not wake up? N o 2 . Suicidal Thoughts: Have you actually had any thoughts of killing yourself? N o 6 . Suicide Behavior Question: Have you ever done anything,started to do anything, or prepared to end your life? N o I nterpretation: L ow Risk C SSRS Interpretation and Follow Up Plan: CSSRS Interpretation and Follow Up Plan C SSRS Screen documented using SF Y es R isk Disposition from L ow - No Follow Up Plan Required F ollow Up Plan N o Follow Up Plan required at this time. T imeframe of Screening [facility] Health and Wellness follow-up: Keshawn BEAVERS Initial Assessment: Fercho Lees, a 59-year-old male, presented for an acute visit addressing alcohol use and depression. He described a pattern of binge drinking followed by abstinence, with his last drink occurring just before admission. Since entering a controlled environment, he denied current cravings and has developed strategies to avoid relapse, expressing concern about the impact of alcohol on his relationship with his daughter and financial constraints related to his stay. He recalled a prior hospitalization after an alcohol-related fall. Fercho also reported severe depression, marked by frequent crying, low motivation, and isolation, which worsened after a relationship ended. He expressed interest in restarting Wellbutrin, having previously found it helpful. His history includes ADHD, with increasing difficulty focusing and organizing tasks, and he previously benefited from Vyvanse. Anxiety remains a significant issue, and he finds Seroquel helpful. These mental health challenges collectively affect his daily functioning and relationships. Currently admitted to the [facility]. Substance use history S ubstance Use History, drugs of choice: A lcohol Addiction Treatment History P rior Medications for AU treatment N one. First time seeking treatment. T herapy/counseling and Recovery support (peers/groups) N o history of therapy/counseling or engagement with recovery support peer/groups. Therapy/counseling and recovery support discussed and encouraged. Referrals placed. History of Infectious Diseases H istory of viral hepatitis N o H istory of HIV N o H istory of TB N o H istory of other infectious diseases N o History of IV drug use and related infections H istory of injection drug use? N o Acute Trauma A cute Trauma N o Psychiatric History H istory of psychiatric diagnoses? Y es (specify) H as a psychiatric provider? N o. Patient is interested in a psychiatric evaluation with [facility] provider. executive staff assistant will coordinate appointment. Primary Care H as a primary care provider? N o I nterested in primary care services at this time? Y es. executive staff assistant will coordinate appointment. Assessment and history specific to females F emale/Female at ? N o Hepatitis A and B vaccination status V accination status Hep A D enies vaccination to Hep A. Vaccination encouraged and resources offered. V accination status, Hep B R eports vaccination for Hep B Housing Stability and Employment I s housing stable/safe? 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 Support System: H as a support system: Y es (specify): adult children Narcan Access H as Narcan and has been trained on its use??Not applicable. Prescription Drug Monitoring Program P rescription Drug Monitoring Program reviewed? Y es. No concerns identified. * ROS: B asic ROS: Denies W eight loss or gain. D enies C hange in appetite. D enies S weats. A dmits A nxiety. A dmits D epressed Mood. A dmits P sychiatric Condition. Corazon schaffer S uicidal Thoughts. * Medical History: * Surgical History: g allbladder removed 2017Hospitalization after slipping in the tub, alcohol- related, details not specified * Hospitalization/Major Diagno stic Procedure: G [facility] - gallstones 08/2016Alcohol-related fall, hospitalized overnight, details not specified * Family History: F ather: . M other: alive. 1 brother(s) , 2 sister(s) . 1 son(s) , 1 daughter(s) - healthy. . father- age 69- kidney failure sister- HTN brother- HTN Patient denies any family history of mental illness or suicide. Patient reports his father drank alcohol daily. Daughter : anxiety Daughter : adhd Ex- : terminal cancer. * Social History: P rimary Social History: L iving Arrangement L iving Arrangement: I ndependent Living I s this a supportive environment? Y es Alcohol Use A lcohol Use Frequency: M onthly or less last drink 7 weeks ago Illicit Substance Usage I llicit Substance Usage: N o Employment Status E mployment Status: U nemployed Tobacco Use - do not use T obacco Use: C urrent T ype of Tobacco: C igarettes Q uanity per day: U p to .5 pack D uration: 1 Years Q uit Attempts in the past: N o I nterested in quitting: Y es P ast Medication Use: D o you use nicotine other than cigarettes?: Yes. S ocial Determinants: P ANNA Chandra ate Completed/Updated: 1 W hat is your current housing situation? I have housing A re you worried about losing your housing??Yes W hat is the highest level of school that you have finished? 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 Check all that apply F ood,Clothing,Utilities H as lack of transportation kept you from medical appointments, meetings, work or from getting things needed for daily living? N o H ow often do you see or talk to people that you care about and feel close to? (For example: talking to friends on the phone, visiting friends or family, going to religious or club meetings) 1 or 2 times a week H ow stressed are you? Stress is when someone feels tense, nervous, anxious, or can\t sleep at night because their mind is troubled V marcin much I n the past year have you spent more than 2 nights in a row in a halfway, intermediate, fci center, or juvenile correctional facility? N o A re you a refugee? I choose not to answer this question W hat country are you from? I choose not to answer this question D o you feel physically and emotionally safe where you currently live? Y es I n the past year, have you been afraid of your partner or ex-partner? N o P RAPARE Score: 9 E nabling Services Provided? Y es P lease specify C ase Management Assessment First Visit T obacco Use: T obacco Control (Standard) T obacco use: C urrent smoker H ow often do you smoke cigarettes? E very day H ow many cigarettes a day do you smoke? 2 1-30 H ow soon after you wake up do you smoke your first cigarette? W ithin 5 minutes A re you interested in quitting? T hinking about quitting A dditional Findings: Tobacco user H eavy cigarette smoker (20-39 cigs/day) D rugs/Alcohol: D o you smoke marijuana?: Denies. Do you drink alcohol?: Denies. M iscellaneous: M ethod of learning P referred method of learning: D emonstration P atient reports he had been 25 years before it ended in divorce 3 months ago. 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 * Medications: T akingNicotine Polacrilex 4 MG Lozenge 1 lozenge as needed for nicotine cravings Mouth/Throat Up to once per hour (maximum of 15 lozenges per day) Multi Vitamin - Tablet 1 tablet Orally Once a day Melatonin 5 MG Tablet 1 tablet at bedtime as needed Orally Once a day Nicotine 21 MG/24HR Patch 24 Hour 1 patch to skin. Transdermal Once a day, removing at bedtime hydrOXYzine Pamoate 25 MG Capsule 1-2 capsules Orally every 4 hours as needed for anxiety, agitation, or inability to sleep. Do not give within 4 hours of diphenhydramine. SEROquel 50 MG Tablet 1 tablet Orally at bedtime , Notes to Pharmacist: pt states that he takes this when neededMedication List reviewed and reconciled with the patientTaking Nicotine Polacrilex 4 MG Lozenge 1 lozenge as needed for nicotine cravings Mouth/Throat Up to once per hour (maximum of 15 lozenges per day) Taking Multi Vitamin - Tablet 1 tablet Orally Once a day Taking Melatonin 5 MG Tablet 1 tablet at bedtime as needed Orally Once a day Taking Nicotine 21 MG/24HR Patch 24 Hour 1 patch to skin. Transdermal Once a day, removing at bedtime Taking hydrOXYzine Pamoate 25 MG Capsule 1-2 capsules Orally every 4 hours as needed for anxiety, agitation, or inability to sleep. Do not give within 4 hours of diphenhydramine. Taking SEROquel 50 MG Tablet 1 tablet Orally at bedtime , Notes to Pharmacist: pt states that he takes this when neededMedication List reviewed and reconciled with the patient * Allergies: A torvastatin Calciumno[Allergies Verified] Objective: * Vitals: I nitials:KS, Wt:177.4, Ht:70, BMI:25.45, BP:144/104, HR:116, Oxygen sat %:97, Temp:98.4, RR:18, Pain scale:5. * Examination: A [facility] Physical Assessment: Intoxication and Withdrawal signs I ntoxication signs N o signs of intoxication are present during examination. W ithdrawal Signs N o withdrawal signs are present during examination. . G eneral Examination: GENERAL APPEARANCE: i n no acute distress, tearful. HEART: r egular rate and rhythm. LUNGS: r espirations regular and easy. PSYCH: a lert, oriented x4, mood depressed, affect sad, speech clear, good eye contact, thought process logical, goal directed. Assessment: * Assessment: 1. O cornelio weight - E66.3 2 . A lcohol use disorder - F10.99 (Primary) ? 3 . D epressive disorder - F32.9 Plan: * Treatment: 2. D epressive disorder Start Wellbutrin SR Tablet Extended Release 12 Hour, 150 MG, 1 tablet in the morning, Orally, Once a day, 30 day(s), 30. Notes: Severe depression with frequent crying and lack of motivation. History of antidepressant use (Zoloft, Wellbutrin). Expressed interest in restarting Wellbutrin today. - Started Wellbutrin SR 150mg for depression. - Referral to psychiatry ([facility]) for further evaluation and management. 3. O thers Notes: Discussed medication side effects, adverse effects, risks, benefits, as well as interactions. Encouraged non-use of alcohol. Recommended participation in recovery groups and/or counseling services. May contact office with questions or concerns. * Recommended Wellness and Pre vention Guidelines: * S tatus A lert L ast Done N ext Due A ction Taken N ONCOMPLIANT A lcohol use screening - 1 - - N ONCOMPLIANT A llergy List Verification - 1 - - N ONCOMPLIANT B P control in HTN (140/90) 0 11/18/2016 1 - - N ONCOMPLIANT C holesterol screen (genl pop) 0 07/28/2017 1 - - N ONCOMPLIANT D epression followup 1 1 - - N ONCOMPLIANT H IV screening - 1 - - N ONCOMPLIANT I nfluenza vaccine (over 50) - 1 - - * Procedure Codes: 3 008F BODY MASS INDEX DOCD * Preventive Medicine: Counseling: S MOKING: Patient counselled on the dangers of tobacco use and urged to quit. . C are goal follow-up plan: BMI management provided Y es Above Normal BMI Follow-up L ifestyle education regarding diet * Follow Up: O ctober (Reason: psych eval) * * Sign off status: Completed true * Provider: Rosalio Kellogg, MSN, FOAM FABRICATOR, OPERATING ROOM SURGICAL TECHNOLOGIST-C Date: Generated for Ellis morales/Wiliam/eTransmitting on: 01:54 PM CDT History and Physical Notes * HPI (History of Present Illness) Category Sub-Category Detail Notes Category Not es Interim History Was hospitalized Yes Emergency room visit Yes Depression Screening PHQ-9 Little inte rest or pleasure in doing things: Several days Feeling down, depressed, or hopeless: Ne ayesha every day Trouble falling or staying asleep, or sl eeping too much: Several days Feeling tired or having little energy: N early every day Poor appetite or overeating: Nearly ever y day Feeling bad about yourself o r that [...] moving around a lot more than usual: Nearly every day Thoughts that you would be b yajaira off or of hurting yourself in some way: Not at all Total Score: 20 Interpretation: Severe Depression Intervention Depression Screening Findings: P ositive Follow-Up for Depression: Pieter gonzalez is admitted to a [facility] residential unit where their mental health is monitored - unit nursing staff have access to this encounter note Screening [place] Suicide Sev erity Rating Scale (LF) Do you want to [...] end your life?: No Interpretation:: Low Risk MAR Initial Assessment History of Infect ious Diseases History of viral hepatitis: No History of HIV: No History of TB: No History of other infectious diseases: No Acute Trauma Acute Trauma: No History of IV drug use and r elated infections History of injection drug use?: No Psychiatric History History of psychiatr ic diagnoses?: Yes (specify) Has a psychiatric provider?: No. Patient is interested in a psychiatric evaluation with [facility] provider. executive staff assistant will coordinate appointment. Substance use history Substance Use History, morena gs of choice:: Alcohol Addiction Treatment History Prior Medica tions for AU treatment: None. First time seeking treatment. Therapy/counseling and Recov marcin support (peers/groups): No history of therapy/counseling or engagement with recovery support peer/groups. Therapy/counseling and recovery support discussed and encouraged. Referrals placed. Primary Care Has a primary care provider?: No Interested in primary care services at this time?: Yes. executive staff assistant will coordinate appointment. Assessment and history speci fic to females Female/Female at ?: No Hepatitis A and B vaccination status Vac cination status Hep A: Denies vaccination to Hep A. Vaccination encouraged and resources offered. 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 Support System: Has a support system :: Yes (specify): adult children Narcan Access Has Narcan and has b een trained on its use?: Not applicable. Prescription Drug Monitoring Program Prescription Drug Monitoring Program reviewed?: Yes. No concerns identified. Preventative Health and Wellness follow-up . CSSRS Interpretation and Follow Up Plan CSSRS Interpretation and Follow Up Plan CSSRS Screen documented using SF: Yes Risk Disposition from SF: Low - No [facility]ollo w Up Plan Required Follow Up Plan: No Follow Up Plan requir ed at this time. Timeframe of Screening: Today Examination Category Sub-Category Detail Notes Category Not es General Examination GENERAL APPEARANCE: in no acute di stress, tearful HEART: regular rate and rhy thm LUNGS: respirations regular and easy PSYCH: alert, oriented x4, mood depressed, affect sad, speech clear, good eye contact, thought process logical, goal directed ASAM Physical Assessment Intoxication an d Withdrawal signs Intoxication signs: No signs of intoxication are present during examination. . Withdrawal Signs: No withdrawal signs ar e present during examination.
--- NOTE | ~2025-04-09 | XR_ITS ---
[id number] Indication: 5 mo R neck pain, abnl xr? Comparison: None Findings: Grade 1 anterolisthesis of C4 on C5 and C5 on C6, no fracture. Mild levoconvex scoliosis. Moderate loss of disc height C5-6 and C6-7. Soft tissues unremarkable Impression: No acute abnormality. Reviewed, dictated and finalized at location P. Impression: No acute abnormality.
--- OUTSIDE RECORDS SUMMARY | 2025-04-09 13:54 | XMS_ITS | Clinical Summary ---
Author Organization [facility] Address [address], [address] [address] Phone Care Team Providers Care Longitudinal Float Operator Name Role Phone Harrison Camacho MD Primary Care Provider [phone] Allergies No known active allergies Medications QUEtiapine Fumarate (SEROQUEL) 50 MG Tablet Take 50 mg by mouth nightly. Active famotidine (PEPCID) 10 MG Tablet Take 10 mg by mouth daily. Active folic acid (FOLVITE) 1 MG Tablet Take 1 mg by mouth daily. Active amLODIPine (NORVASC) 10 MG Tablet Take 1 Tab by mouth daily. 90 Tab 3 03/06/2017 Active Multiple Vitamins-Mineral s (MULTIVITAMIN PO) Take 1 Tab by mouth daily. Active Active Problems Problem Noted Date Diagnosed Date Traumatic complete tear of right rotator cuff Family History Medical History Relation Name Comments Hypertension Father Cancer Mother liver Hypertension Mother Hypertension Sister Relation Name Status Comments Father Mother Sister Alive Social History Tobacco Use Types Packs/Day Years Used Date Smoking Tobacco: Every Day Cigarettes Smokeless Tobacco: Never Tobacco Cessation:Ready to Q uit: Yes; Counseling Given: Yes Alcohol Use Standard Drinks/Week Comments No 0 (1 standard drink = 0.6 oz pur e alcohol) Sexually Active Control Partners Comments Not Currently Female Sex and Gender Information Value Date Recorded Sex Assigned at Not on file Legal Sex Male 12:13 PM CDT Gender Identity Not on file Sexual Orientation Not on file Last Filed Vital Signs Vital Sign Reading Time Taken Comments Blood Pressure 126/83 01/20/2019 3:04 PM CDT Pulse 55 01/20/2019 3:04 PM CDT Temperature 36.2 C (97.1 F) 01/20/2019 3:04 PM CDT Respiratory Rate 16 01/20/2019 3:04 PM CDT Oxygen Saturation 97% 01/20/2019 3:04 PM CDT Inhaled Oxygen Concentration - - Weight 83.9 kg (185 lb) 01/19/2019 9:00 AM CDT Height 177.8 cm (5' 10) 01/19/2019 9:00 AM CDT Body Mass Index 26.54 01/19/2019 9:00 AM CDT Plan of Treatment Health Maintenance Due Date Last Done Comments Hepatitis C Virus (HCV) Screening 1964 TdaP Immunization 1964 Cologuard 2009 Colonoscopy 2009 Colorectal Cancer Screening 2009 Immunochemical Fecal Occult Blood 2009 Pneumococcal Immunization (5 0+ years) (1 of 1 - PCV) 2014 Zoster Immunization (1 of 2) 2014 Influenza Immunization (#1) 2025 SARS-COV-2 Immunization (3 - 2024- season) 2025 11/16/2020, 10/26/2020 Respiratory Syncytial Virus (RSV) Immunization (Adult) (1 - 1-dose 75+ series) 2039 Hepatitis B Immunization Aged Out No longer eligible based on patient's age to complete this topic Human Papillomavirus (HPV) Immunization Aged Out No longer eligible b ased on patient's age to complete this topic Meningococcal Immunization (ACWY) Aged Out No longer eligible b ased on patient's age to complete this topic Rotavirus Immunization Aged Out No lo nger eligible based on patient's age to complete this topic Medical Devices Implanted Type Area Practice Or Student Teacher Device Identifier Shelf Expiration Date Model / Serial / Lot System Fix 19.1mm 4.75mm Speedbridge Swivelock Biocomposite Emely Preload Strl - [id number] Implanted:Qty: 1 on 01/20/2019 by David Hightower MD at [facility] IMPLANT Right: Shoulder [employer] 06/29/2020 [id number] S-4 / [id number] S-4 / [id number] Insurance MEDICAID [place] Care Teams Longitudinal Float Operator Relationship Specialty Start Date End Date Harrison Camacho MD [address] [address] PCP - General Family Medicine 01/03/17
--- OUTSIDE RECORDS SUMMARY | 2025-04-09 13:54 | XMS_ITS | Clinical Summary ---
Author Organization [facility] Address [address] [place] [address] Care Team Providers Care Auto Service Mechanic Name Role Phone Tyrone Crocker MD Primary Care Provider [phone] Andriy Deluna MD Unavailable [phone] Allergies No known active allergies Medications QUEtiapine (SEROquel) 25 mg tablet Take 0.5 tablets (12.5 mg total) by mouth 2 (two) times a day 30 tablet 1 10/15/2024 Active QUEtiapine (SEROquel) 50 mg tablet Take 1 tablet (50 mg total) by mouth nightly 30 tablet 1 10/15/2024 Active Active Problems Problem Noted Date Diagnosed Date Ulnar neuropathy of both upper extremities 10/15 Anxiety 10/15/2024 Elevated liver enzymes 10/12/2024 Alcohol withdrawal syndrome without complication 10/12/2024 Incisional hernia with obstruction but no gangre ne 04/10/2021 Encounters Date Type Department Care Team Description 03/14/2025 Patient Outreach [facility] [address] [place], [place] [phone] Jaren Duran from Last 3 Months Surgical History Surgery Date Site/Laterality Comments CHOLECYSTECTOMY 06/30/2018 - 06/29/2019 SHOULDER SURGERY Right HERNIA REPAIR 05/16/2021 XI REPAIR INCARCIRATED INCISIONAL HERNIA - LAPAROSCOPIC ROBOTIC ASSISTED by Dr Deluna Family History Medical History Relation Name Comments No Known Problems Brother Diabetes Father Hypertension Father Hypertension Mother Liver cancer Mother No Known Problems Sister Relation Name Status Comments Brother Alive Father Mother Sister Alive Social History Tobacco Use Types Packs/Day Years Used Date Smoking Tobacco: Every Day Cigarettes 1 1 Smokeless Tobacco: Never Tobacco Cessation:Ready to Q uit: No; Counseling Given: Yes AUDIT-C Answer Date Recorded Q1: How often do you have a drink containing alc ohol? Never 05/16/2021 Average Number of Drinks Not on file 021 Q3: How often do you have si x or more drinks on one occasion? Never 05/16/2021 Personal Safety Answer Date Recorded Have you ever been in or are you currently in a harmful physical or emotional relationship or is someone making you feel afraid or unsafe? Denies 10/11/2024 Sex and Gender Information Value Date Recorded Sex Assigned at Not on file Legal Sex Male 8:40 AM CDT Gender Identity Not on file Sexual Orientation Not on file Obstetrics History Last Filed Vital Signs Vital Sign Reading Time Taken Comments Blood Pressure 132/91 10/15/2024 7:23 AM CDT Pulse 95 10/15/2024 7:23 AM CDT Temperature 36.3 C (97.3 F) 10/15/2024 7:23 AM CDT Respiratory Rate 16 10/15/2024 7:23 AM CDT Oxygen Saturation 96% 10/15/2024 7:23 AM CDT Inhaled Oxygen Concentration - - Weight 88 kg (194 lb) 10/12/2024 9:58 AM CDT Height 177.8 cm (5' 10) 10/12/2024 9:58 AM CDT Body Mass Index 27.84 10/12/2024 9:58 AM CDT Plan of Treatment Health Maintenance Due Date Last Done Comments Colon Cancer Screening-Colonoscopy 1964 Depression Screening 1964 Prostate Cancer Screening-PSA 1964 DTaP/Tdap/Td Vaccine (1 - Tdap) 1975 Hepatitis B Screening 1982 Regular Well Visit/Exam 18-64 1982 Pneumococcal vaccine <65 (1 of 2 - PCV) 1983 Zoster Vaccine (1 of 2) 2014 Covid-19 Vaccine (3 - season) 2025, 10/26/2020 Influenza Vaccine (#1) 2025 Hepatitis C Screening Completed 10/12/2024 Medical Devices Implanted Type Area Forger Helper Device Identifier Shelf Expiration Date Model / Serial / Lot [employer]/C R Bard [id number] Mesh Surgical Ventralight St Echo 2 Ellipse L15 Cm X W10 Cm - [id number] Implanted:Qty: 1 on 05/16/2021 by Andriy Deluna MD at [facility] N/A: Abdomen [employer] Bard 09/24/2021 [id number] / / [id number] Procedures Procedure Name Priority Date/Time Associated Diagnosis Comments HEPATITIS PANEL, ACUTE Timed 10/12/2024 7:37 AM CDT from Last 3 Months or Most Recently Relevant to Health Maintenance Results * Hepatitis panel, acute Blood (10/12/2024 7:37 AM CDT) Hep A IgM Nonreactive Nonreactive Comment: Interpretive Data: If Hep A IgM Ab is reported as Equivocal, a new sample should be drawn in two weeks for testing. Current interpretive data was last revised on 19. Testing performed by: [address] [address] Hep B core IgM Nonreactive Nonreactive Preston CAMARILLO (SUZE) Comment: Interpretive Data If HepB Core IgM Ab is reported as Equivocal, a new sample should be drawn in two weeks for testing. Current interpretive data was last revised on 19. Testing performed by: [address] [address] Hep C Ab Nonreactive Nonreactive [facility] ([facility]) Comment: Interpretive Data Nonreactive: Antibodies to HCV not detected. Does NOT exclude the possibility of recent exposure to HCV. Equivocal: Equivocal for HCV antibodies. Supplemental molecular testing will be automatically performed to determine infection status in accordance with current CDC screening recommendations. Reactive: Positive for HCV antibodies. This may represent current or past HCV infection. Supplemental molecular testing will be automatically performed to determine current infection status in accordance with current CDC screening recommendations. Interpretive data was last revised on 2019. Testing performed by: [address] [address] HepBsAg Nonreactive Nonreactive ERIKA CAMARILLO (SUZE) Comment:Testing performed by : [facility], [address] [place] [address], [place]., [address] Blood 10/12/2024 7:37 AM CDT 10/12/2024 9:30 AM CDT us Carmen Pereyra MD LAB MICROBIOLOGY - GENERAL ORDER ROEL Final Result ERIKA CAMARILLO (SUZE) [address] [facility] Department [place] [address] from Last 3 Months or Most Recently Relevant to Health Maintenance Insurance HUMANA CLAIMS OFFICE HUMANA CHOICE MEDICARE PPO [facility] Advance Directives For more information, please contact: [phone] * Full Code (Latest Code Status on File) Date Activated Date Inactivated Comments 10/12/2024 10:11 AM 10/15/2024 5:17 PM * Full Code Date Activated Date Inactivated Comments 05/16/2021 10:30 AM 05/16/2021 4:55 PM Care Teams Auto Service Mechanic Relationship Specialty Start Date End Date Tyrone Crocker MD PCP - General Internal Medicine 03/27/21 Andriy Deluna MD Surgeon General Surgery 05/16/21
--- OUTSIDE RECORDS SUMMARY | 2025-04-09 13:54 | XMS_ITS | Clinical Summary ---
Author Organization [facility] Address [address] [facility] [place] [address] Care Team Providers Care Criminal Justice Lawyer Name Role Phone Nimco Jacobsen MD Primary Care Provider Source Comments [facility],non-owned Affiliates and Associated Physician Practices is amultiple site organization consisting of ambulatory clinics and hospital sitesin [place], [place], [place] and [place]. This disclosure is being madepursuant to the Care Everywhere program and may not contain all information available regarding this patient. Last updated 18.[facility] Allergies No known active allergies Medications * This document contains information received from the source organization and may not represent a complete record from that organization. * Be aware that medications may not be up to date on this document. Alwaysverify current medications with the patient. multiple vitamins with minerals tablet Take 1 (one) tablet by mouth once daily Active buPROPion XL 24hr (Wellbutrin XL) 300 MG tabletIndicatio ns:Major Depressive Disorder Take 1 (one) tablet by mouth every morning Reasons: Major Depressive Disorder 30 tablet 4 Active gabapentin (Neurontin) 300 MG capsuleIndicati ons:Anxiety Disorder Take 1 (one) capsule by mouth 3 times daily Reasons: Anxiety Disorder 90 capsule 4 Active sertraline (Zoloft) 50 MG tabletIndicatio ns:Major Depressive Disorder Take 1 (one) tablet by mouth once daily Reasons: Major Depressive Disorder 30 tablet 4 Active traZODone (Desyrel) 100 MG tabletIndicatio ns:Insomnia Take 1 (one) tablet by mouth at bedtime Reasons: Trouble Sleeping 30 tablet 4 Active QUEtiapine (SEROquel) 100 MG tabletIndicatio ns:Major Depressive Disorder Take 1 (one) tablet by mouth at bedtime Reasons: Major Depressive Disorder 30 tablet 4 Active QUEtiapine (SEROquel) 50 MG tabletIndicatio ns:Major Depressive Disorder Take 1 (one) tablet by mouth once daily Reasons: Major Depressive Disorder 30 tablet 4 Active Social History Tobacco Use Types Packs/Day Years Used Date Smoking Tobacco: Every Day Cigarettes Smokeless Tobacco: Never Tobacco Cessation:Ready to Q uit: Not Asked; Counseling Given: Not Answered Sex and Gender Information Value Date Recorded Sex Assigned at Not on file Legal Sex Male 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 Gender Identity Not on file Sexual Orientation Not on file Last Filed Vital Signs Vital Sign Reading Time Taken Comments Blood Pressure 131/92 02/28/2024 10:47 AM CDT Pulse 74 02/28/2024 10:47 AM CDT Temperature 37 C (98.6 F) 02/28/2024 10:47 AM CDT Respiratory Rate 18 02/28/2024 10:47 AM CDT Oxygen Saturation 97% 01/16/2024 5:35 PM CDT Inhaled Oxygen Concentration - - Weight 83.9 kg (185 lb) 02/28/2024 10:47 AM CDT Height 180.3 cm (5' 11) 02/28/2024 10:47 AM CDT Body Mass Index 25.8 02/28/2024 10:47 AM CDT Plan of Treatment Health Maintenance Due Date Last Done Comments COLOGUARD (AGES 45-75) - COL ON CA SCREENING 1964 COLON MONITORING 1964 COLONOSCOPY - COLON CA SCREENING 1964 CT COLONOGRAPHY - COLON CA SCREENING 1964 Colorectal Cancer Screening 1964 FIT - COLON CA SCREENING 1964 FLEX SIG - COLON CA SCREENING 1964 LIPID TESTING 1964 HIV SCREENING 1979 HEPATITIS C SCREENING 08/20/1982 DTAP/TDAP/TD VACCINES (1 - Tdap) 1983 PNEUMOCOCCAL VACCINE 50+ (1 of 2 - PCV) 1983 ZOSTER VACCINE (1 of 2) 2014 DEPRESSION SCREENING 06/30/2024 COVID-19 VACCINE (3 - 2024-2 6 season) 2025 11/16/2020, 10/26/2020 INFLUENZA VACCINE (#1) 2025 Respiratory Syncytial Virus (RSV) Vaccine Pt: or over 60 yrs (1 - 1-dose 75+ series) 2039 HEPATITIS B VACCINE Aged Out No longe r eligible based on patient's age to complete this topic HIB VACCINE Aged Out No longer eligi ble based on patient's age to complete this topic HPV VACCINE Aged Out No longer eligi ble based on patient's age to complete this topic MENINGOCOCCAL (Group B) VACCINE SHARED DECISION-MAKING Aged Out No longer eligible based on patient's age to complete this topic MENINGOCOCCAL GROUPS A/C/Y/W VACCINE Aged Out No longer eligible b ased on patient's age to complete this [place] [address] [place] MEDICA[place] AETNA Care Teams Criminal Justice Lawyer Relationship Specialty Start Date End Date Nimco Jacobsen MD [address] [facility] [address] [place] [address] PCP - General 02/26/17
--- OUTSIDE RECORDS SUMMARY | 2025-04-09 13:54 | XMS_ITS | Patient Health Record ---
Author Organization [facility] Address [address] [place] [address] Care Team Providers Care Carboy Filler Name Role Phone Latasha Esqueda Primary Care Provider [phone] Reva Belcher Unavailable [phone] Orbeus, [facility] Unavailable U massielDianna Ramirez Unavailable [phone] Bal Pond Unavailable [phone] Winsome Hendrix Unavailable [phone] Allergies Allergen (clinical drug ingredient) Drug/Non Drug Allergy documented on EMR Reaction Allergy Type Onset Date Status atorvastatin Atorvastatin Calcium Unknown Drug Allergy Active Results Component Value Reference Range Notes Breathalyzer Reviewed date:04/06/2025 11:14:22 AM Interpretation: Performing Lab: Notes/Report: YUE 0.000 14 Panel Urine Drug Screen Reviewed date:04/06/2025 11:14:22 AM Interpretation: Performing Lab: Notes/Report: THC pos KATRIN neg MOP (OPI) neg AMP neg MET neg BAR neg BZO pos MDMA neg MTD neg OXY neg PCP neg BUP neg TCA neg FTY neg Reason For Referral No Information Medications Medication SIG (Take, Route, Frequency, Duration) Notes Start Date End Date Status Nicotine 21 MG/24HR 1 patch to skin. Transdermal Once a day, removing at bedtime; Duration: 28 days 04/06/2025 Active Melatonin 5 MG 1 tablet at bedtime as needed Orally Once a day; Duration: 30 days 04/06/2025 Active SEROquel 50 MG 1 tablet Orally at bedtime; Duration: 10 days pt states that he takes this when needed Active hydrOXYzine Pamoate 25 MG 1-2 capsules Orally every 4 hours as needed for anxiety, agitation, or inability to sleep. 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 Stress is when someone feels tense, nervous, anxious, or can\t sleep at night because their mind is troubled Very much In the past year have you sp ent more than 2 nights in a row in a senior living, fci, penitentiary center, or juvenile correctional facility? No Are [...] it ended in divorce 3 months ago. Patient reports he had been 25 years before it ended in divorce 3 months ago. Patient reports he had been 25 years before it ended in divorce 3 months ago. Patient reports he had been 25 years before it ended in divorce 3 months ago. Patient reports he had been 25 years before it ended in divorce 3 months ago. Patient reports he had been 25 years before it ended in divorce 3 months ago. Patient reports he had been 25 years before it ended in divorce 3 months ago. Patient reports he had been 25 years before it ended in divorce 3 months ago. Patient reports he had been 25 years before it ended in divorce 3 months ago. Patient reports he had been 25 years before it ended in divorce 3 months ago. Patient reports he had been 25 years before it ended in divorce 3 months ago. Occupation: [employer] Living situation: Lives alone Alcohol use: Binge drinking three to five days at a time, periods of abstinence, last drink before admission Patient reports he had been 25 years before it ended in divorce 3 months ago. Patient reports he had been 25 years before it ended in divorce 3 months ago. Patient reports he had been 25 years before it ended in divorce 3 months ago. Patient reports he had been 25 years before it ended in divorce 3 months ago. Patient reports he had been 25 years before it ended in divorce 3 months ago. Patient reports he had been 25 years before it ended in divorce 3 months ago. Patient reports he had been 25 years before it ended in divorce 3 months ago. Patient reports he had been 25 years before it ended in divorce 3 months ago. Patient reports he had been 25 years before it ended in divorce 3 months ago. Problems Problem Type SNOMED Code ICD Code Onset Dates Problem Status W/U Status Risk Notes Problem Tobacco dependence (64727406) Tobacco dependence (F17.200) Active confirmed Problem Anxiety (36871702) Anxiety (F41.9) Active confi rmed Problem Attention deficit hyperactivity disorder (642325612) ADHD (attention deficit hyperactivity disorder) (F90.9) Active confirmed Problem Depressive disorder (72513731) Depressive disorder (F32.9) Active confirmed Problem Overweight (526763178) Over weight (E66.3) Active confirmed Problem Onychomycosis (403572344) Onychomycosis (B35.1) Active confirmed Problem Alcohol use disorder (2147088492) Alcohol use disorder (F10.99) Active confirmed Problem Subclinical hypothyroidism (82481020) Subclinical hypothyroidism (E03.9) Active confirmed Problem Alcohol abuse (36534208) AA (alcohol abuse) (F10.10) Active confirmed Problem Essential hypertension (02544980) Essential hypertension (I10) Active confirmed Problem Hypothyroidism (43296618) Hypothyroidism, unspecified type (E03.9) Active confirmed Problem Erectile dysfunction (disorder) (185030277) Erectile dysfunction, unspecified erectile dysfunction type (N52.9) Active confirmed Problem Hyperlipidaemia (29707602) Hyperlipidemia, unspecified hyperlipidemia type (E78.5) Active confirmed Problem Physical examination, complete (92008002) Adult general medical examination (Z00.00) Active confirmed Vital Signs Heart Rate 116 /min 04/08/2025 Temperature 98.4 degrees Fahrenheit 04/08/2025 Respiratory Rate 18 /min 04/08/2025 Blood pressure diastolic 104 mm Hg 04/08/2025 Oximetry 97 % 04/08/2025 Height 70 in 04/08/2025 Blood pressure systolic 144 mm Hg 04/08/2025 Weight 177.4 lbs 04/08/2025 BMI 25.45 kg/m2 04/08/2025 Encounters Encounter Location Date Provider Diagnosis [facility] [address] [place] [address] 04/06/2025 Bal Pond Adult general medica l examination Z00.00 ; Tobacco dependence F17.200 ; Anxiety F41.9 ; Alcohol use disorder F10.99 ; Hypothyroidism, unspecified type E03.9 ; Essential hypertension I10 and Over weight E66.3 [facility] [address] [place] [address] 04/06/2025 Winsome Hendrix Over weight E66.3 an d AA (alcohol abuse) F10.10 [facility] [place] [address] 04/08/2025 Dianna Kellogg Over weight E66.3 ; Alcohol use disorder F10.99 and Depressive disorder F32.9 [facility] [address] [place] [address] 04/07/2025 [place] Adult general medica l examination Z00.00 Assessments Encounter Date Diagnosis (ICD Code) Assessment [...] ng, or if soaking through bandages. 04/06/2025 Over weight (ICD-10 - E66.3) 04/08/2025 Over weight (ICD-10 - E66.3) 04/08/2025 [...] Referral to psychiatry (Naye) for ongoing management. 04/07/2025 Adult general medical examination (ICD-10 - Z00.00) 04/06/2025 AA (alcohol abuse) (ICD-10 - F10.10) 04/08/2025 Depressive disorder (ICD-10 - F32.9) Severe depression with frequent crying and lack of motivation. History of antidepressant use (Zoloft, Wellbutrin). Expressed interest in restarting Wellbutrin today. - Started Wellbutrin SR 150mg for depression. - Referral to psychiatry (Naye) for further evaluation and management. 04/06/2025 Tobacco dependence (ICD-10 - F17.200) 04/06/2025 [...] 04/06/2025 Other Continue treatment as recommended by [facility] staff. Encouraged patient to obtain routine medical care with patient's own primary care provider or establish as a patient at [facility] if no current primary care provider. 04/06/2025 Other Clinician met w ith client to assess needs for residential services. Clinician gathered information regarding historical presentation of mental health and substance use symptoms including withdrawal, HIV Risk assessment, psychiatric hospitalization history and presenting concern. Clinician conducted PHQ9 and CSSRS assessments as well as social drivers of health screening for the purposes of identifying additional service needs. 04/08/2025 Other Discussed medication side effects, adverse effects, risks, benefits, as well as interactions. Encouraged non-use of alcohol. Recommended participation in recovery groups and/or counseling services. May contact office with questions or concerns. Plan Of Treatment Future Test Test Name Order Date CBC With Differential/Platelet* 04/06/20 CMP 14 Comprehensive Metabolic Panel* QuantiFERON-TB Gold Plus ([id number]) 2024 TSH+Free T4 04/06/2025 Next Appt Details Provider Name:Bal snow, 04/11/2025 02:00:00 PM, [address], [place], [address], Provider Name:Naye barr, 04/13/2025 11:00:00 AM, [address], [place], [address], Insurance Providers Payer Name Payer Address Payer Phone Subscriber Number Group Number Insured Name Patient Relationship to Insured Coverage Start Date Coverage End Date [facility] [address] [place] [address] [id number] Fercho Lees Self - patient is the insured 5 [facility] Attn Claims Department [address] [place] [address] [id number] Fercho Lees Self - patient is the insured 6 5 Medical (General) History Medical History History ICD Code hypertension Gallstones depression anxiety alcohol abuse hypothyroidism Alcohol use disorder Depressive disorder Adhd Anxiety Surgical History Surgery Date(Month/Year) gallbladder removed 2016 Hospitalization after slippi ng in the tub, alcohol-related, details not specified Hospitalization History Reason Date(Month/Year) [facility] - gallstones 08/2016 Alcohol-related fall, hospitalized overn ight, details not specified
[2025-04-09 14:44] VITALS: BP 148/90; PULSE 112; RESP 18; TEMP 36.4; O2SAT 100
[2025-04-09 14:59] VITALS: BP 148/98; PULSE 110; RESP 19; O2SAT 97
[2025-04-09 15:01] VITALS: BP 133/105; PULSE 108; RESP 20; O2SAT 96
[2025-04-09 15:16] VITALS: BP 137/99; PULSE 107; RESP 18; O2SAT 95
--- OUTSIDE RECORDS SUMMARY | 2025-04-09 15:59 | XMS_ITS | Clinical Summary ---
Author Organization [facility] Address [address], [address] [address] Phone Care Team Providers Care Ambulance Operations Supervisor Name Role Phone Harrison Camacho MD Primary Care Provider [phone] Allergies No known active allergies Medications QUEtiapine [...] this topic Medical Devices Implanted Type Area Cashier Host/Hostess Device Identifier Shelf Expiration Date Model / Serial / Lot System Fix 19.1mm 4.75mm Speedbridge Swivelock Biocomposite Emely Preload Strl - [id number] Implanted:Qty: 1 on 01/20/2019 by David Hightower MD at [facility] IMPLANT Right: Shoulder [employer] 06/29/2020 [id number] S-4 / [id number] S-4 / [id number] Insurance MEDICAID [place] Care Teams Ambulance Operations Supervisor Relationship Specialty Start Date End Date Harrison Camacho MD [address] [address] PCP - General Family Medicine 01/03/17
--- OUTSIDE RECORDS SUMMARY | 2025-04-09 15:59 | XMS_ITS | Clinical Summary ---
Author Organization [facility] Address [address] [place] [address] Care Team Providers Care Rug Dry Room Attendant Name Role Phone Nimco Jacobsen MD Primary Care Provider Source Comments [facility],non-owned Affiliates and Associated Physician Practices is amultiple site organization consisting of ambulatory clinics and hospital sitesin [place], [place], [place] and [place]. This disclosure is being madepursuant to the Care Everywhere program and may not contain all information available regarding this patient. 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
--- OUTSIDE RECORDS SUMMARY | 2025-04-09 15:59 | XMS_ITS | Clinical Summary ---
Author Organization [facility] Address [address] [place] [address] Care Team Providers Care Claim Trainee Name Role Phone Tyrone Crocker MD Primary Care Provider [phone] Andriy Deluna MD Unavailable [phone] Allergies No known active allergies Medications QUEtiapine [...] Department Care Team Description 03/14/2025 Patient Outreach [facility] Warm Hand Off Program [address] [place], [place] [phone] Jaren Duran from Last 3 Months Surgical [...] Completed 10/12/2024 Medical Devices Implanted Type Area Apprentice Stylist Device Identifier Shelf Expiration Date Model / Serial / Lot [employer]/C R Bard [id number] Mesh Surgical Ventralight St Echo 2 Ellipse L15 Cm X W10 Cm - [id number] Implanted:Qty: 1 on 05/16/2021 by Andriy Deluna MD at [facility] N/A: Abdomen [employer]/C R Bard 09/24/2021 [id number] / / [id number] Procedures Procedure Name Priority Date/Time Associated Diagnosis [...] last revised on 19. Testing performed by: [address] [address] Hep B core IgM Nonreactive Nonreactive Preston CAMARILLO (SUZE) Comment: Interpretive Data If HepB Core IgM Ab is reported as Equivocal, a new sample should be drawn in two weeks for testing. Current interpretive data was last revised on 19. Testing performed by: [address] [address] Hep C Ab Nonreactive Nonreactive [facility] [...] last revised on 2019. Testing performed by: [address] [address] HepBsAg Nonreactive Nonreactive ERIKA CAMARILLO (SUZE) Comment:Testing performed by : [facility], [address] [place] [address], [place]., [address] Blood 10/12/2024 7:37 AM CDT 10/12/2024 9:30 AM CDT us Carmen Pereyra MD LAB MICROBIOLOGY - GENERAL ORDER ROEL Final Result ERIKA CAMARILLO (SUZE) [address] [facility] [place] [address] from Last 3 Months or Most Recently Relevant to Health Maintenance Insurance HUMANA CLAIMS OFFICE HUMANA CHOICE MEDICARE PPO [facility] Advance Directives For more information, please contact: [phone] * Full Code (Latest Code Status on File) Date Activated Date Inactivated Comments 10/12/2024 10:11 AM 10/15/2024 5:17 PM * Full Code Date Activated Date Inactivated Comments 05/16/2021 10:30 AM 05/16/2021 4:55 PM Care Teams Claim Trainee Relationship Specialty Start Date End Date Tyrone Crocker MD PCP - General Internal Medicine 03/27/21 Andriy Deluna MD Surgeon General Surgery 05/16/21
--- NOTE | 2025-04-09 16:08 | ED.RECABL ---
HPI - Recheck/Abnormal Lab/Rx General Chief Complaint: Recheck/Abnormal Lab/Rx Stated Complaint: htn Time Seen by Provider: 04/09/25 15:07 History of Present Illness HPI narrative: Patient presenting here after being sent from chest not rehab for possible high blood pressure, he is unsure if he is diagnosed with this but is not currently on blood pressure medications, he thinks that he is just very anxious and has been anxious for the last few days with some elevated heart rate, no chest pain or shortness of breath. Last drink 6 days ago. Related Data Home Medications ?Medication ?Instructions ?Recorded ?Confirmed ?Last Taken ?Type bupropion HCl 150 mg tablet,12 hr 150 mg PO DAILY 04/09/25 04/09/25 04/09/25 History sustained-release hydroxyzine pamoate 25 mg capsule 25 mg PO PRN 04/09/25 04/09/25 04/09/25 History multivitamin with folic acid 400 1 tablet PO DAILY 04/09/25 04/09/25 04/09/25 History mcg tablet (Daily-Chalo (with folic acid)) naltrexone 50 mg tablet 50 mg PO DAILY 04/09/25 04/09/25 04/09/25 History quetiapine 50 mg tablet 50 mg PO PRN 04/09/25 04/09/25 04/09/25 History Allergies Allergy/AdvReac Type Severity Reaction Status Date / Time No Known Allergies Allergy Verified 04/09/25 13:59 Review of Systems Review of Systems: All systems reviewed & are unremarkable except as noted in HPI and below PMFSH Past Medical History Medical History (Updated 04/09/25 @ 16:58 by Nhi Fabian MD) Hypothyroid Hypertension Surgical History Surgical History (Updated 09/17/19 @ 13:26 by Carla Ramos NP) History of arthroscopy of right shoulder Hx of cholecystectomy Social History Social History (Updated 09/17/19 @ 13:26 by Carla Ramos NP) Smoking packs per day: 1 Smoking cigarettes per day: 20.0 Years smoked: 3 Smoking pack-years: 3.00 Smoking status: Current every day smoker Alcohol intake: former Substance use: former Substance use type: opiates Living arrangements: with family Gender identity (if verbalized by the patient): Male Exam Narrative: EXAMINATION OF ORGAN SYSTEMS/BODY AREAS: Constitutional: Vital signs per nursing GENERAL: Somewhat anxious appearing HEAD: Normal with no signs of head trauma. EYES: EOMI, conjunctiva normal ENT: Hearing grossly intact NECK: No midline tenderness. Normal range of motion LUNGS: Nonlabored breathing. HEART: Slightly tachycardic ABD: [Soft], [nontender to palpation] EXT: Normal range of motion SKIN: [No rashes or lesions.] NEURO: [Alert and oriented x 3. No gross focal sensory or strength deficits other than some ulnar neuropathy patient states is chronic, no significant tremors.] PSYCH: Slightly anxious affect Course Vital Signs Vital signs: Vital Signs Temperature 97.5 F L 04/09/25 14:44 Pulse Rate 112 H 04/09/25 14:44 Respiratory Rate 18 04/09/25 14:44 Blood Pressure 148/90 H 04/09/25 14:44 Pulse Oximetry 100 04/09/25 14:44 Temperature 97.5 F L 04/09/25 14:44 Pulse Rate 107 H 04/09/25 15:16 Respiratory Rate 18 04/09/25 15:16 Blood Pressure 137/99 H 04/09/25 15:16 Pulse Oximetry 95 04/09/25 15:16 MDM - Recheck/Abnormal Lab/Rx MDM Narrative Medical decision making narrative: Patient with history of anxiety, alcohol use disorder, presenting here to check his blood pressure. On exam patient is [tachycardic and appears anxious]. He has no chest pain or shortness of breath but he does have chronic right-sided neck pain that he would like to have an x-ray taken for. Was initially slightly tachycardic, though very anxious here, I suspect this may be what is also causing him to have high blood pressure when he was in rehab, he is given some fluids, a small dose of Ativan, and on re-evaluation, he does feel better, repeat blood pressure is now normal, and BP heart rate is now 92. X-ray are of neck obtained per patient request, no acute abnormality seen. EKG - 12-Lead: Performed at 1759. Interpreted by me. [Sinus rhythm]. Rate 94. [Normal] axis. VA-interval [normal]. QRS duration [normal]. QTc [normal]. [No ST segment elevation or depression]. [T-wave normal]. Impression: No EKG evidence of acute ischemia or dysrhythmia. On reevaluation patient is feeling better, resting comfortably, vital signs now stable. I do feel patient is stable for discharge home at this time with followup to their doctor, and return here if symptoms return or worsen. He would like to be started on blood pressure medications since he thinks he used to be on it, he does have some reading of elevated blood pressures, including here and and rehab a few days ago, given this I will start him on a very low-dose amlodipine. Strict return precautions provided. Agreeable to outpatient management. Lab Data 04/09/25 16:31 04/09/25 16:31 Labs: Lab Results 04/09/25 Range/Units 16:31 WBC 7.5 (4.5-10.0) K/mm3 RBC 4.47 L (4.6-6.20) M/mm3 Hgb 14.7 (14.0-18.0) g/dL Hct 43.4 (42.0-52.0) % MCV 97.1 (80-100) fl MCH 32.9 (26-34) pg MCHC 33.9 (32-36) g/dl RDW 13.4 (11.5-14.5) % Plt Count 322 (150-375) k/mm3 MPV 8.3 (7.4-10.4) fl Immature Gran % (Auto) 1.1 H (0-0.5) % Neut % (Auto) 68.4 (45.5-73.1) % Lymph % (Auto) 21.7 (18.3-44.2) % [place] % (Auto) 6.6 (2.6-8.5) % Eos % (Auto) 1.1 (0-4.4) % Baso % (Auto) 1.1 (0.2-1.2) % Lymph # (Auto) 1.63 (0.9-3.2) K/mm3 [place] # (Auto) 0.5 (0.1-0.6) K/mm3 Eos # (Auto) 0.1 (0-0.3) K/mm3 Baso # (Auto) 0.1 (0.0-0.1) K/mm3 Abs Immat Gran (auto) 0.08 H (0.00-0.031) K/mm3 Absolute Neuts (auto) 5.2 (1.3-6.7) K/mm3 Absolute Nucleated RBC 0.000 (0.0-0.012) K/mm3 Nucleated RBC % 0.0 (0.0-0.2) % Sodium 137 (137-145) mmol/L Potassium 4.5 (3.4-5.0) mmol/L Chloride 105 (98-107) mmol/L Carbon Dioxide 24 (22-30) mmol/L Anion Gap 8 (4-12) mmol/L BUN 17 (9-20) mg/dL Creatinine 0.64 L (0.7-1.3) mg/dL Estim Creat Clear Calc 98 ml/min Estimated GFR > 60 (59 - ) Glucose 105 (65-110) mg/dL Calcium 9.5 (8.4-10.2) mg/dL Discharge Plan Discharge Clinical Impression: Anxiety, Hypertension, Chronic neck pain Patient Disposition: Home Condition: Stable Instructions: Hypertension (ED), Anxiety (ED), Neck Pain (ED) Additional Instructions: Please make sure you are keeping hydrated, and follow up with a primary care doctor for recheck of your blood pressure and further evaluation appear neck pain; you can always return for any further issues. Patient Language: [place] Island[place] Prescriptions: New amlodipine 2.5 mg tablet 2.5 mg PO DAILY Qty: 30 0RF No Action ondansetron 4 mg tablet,disintegrating 4 mg PO Q6H PRN (Reason: nausea and vomiting) Qty: 20 0RF dicyclomine 20 mg tablet 20 mg PO TID PRN (Reason: abdominal discomfort) Qty: 20 0RF bupropion HCl 150 mg tablet sustained-release 12 hr 150 mg PO DAILY naltrexone 50 mg tablet 50 mg PO DAILY hydroxyzine pamoate 25 mg capsule 25 mg PO PRN quetiapine 50 mg tablet 50 mg PO PRN multivitamin with folic acid [Daily-Chalo (with folic acid)] 400 mcg tablet 1 tablet PO DAILY Follow-up/Referrals: Kin Newman MD [Physician, Family Practice] - 2 Days UNKNOWN,DOCTOR [Primary Care Provider]
[2025-04-09] MEDS: LORazepam (*CRX) 1 MG TABLET PO (16:22)
[2025-04-09] MEDS: LACTATED RINGERS 1,000 ML 999 ML IV CONT (16:32)
[2025-04-09 16:37] LABS: Hematocrit 43.4 % (42.0-52.0); Hemoglobin 14.7 g/dL (14.0-18.0); Immature Granulocyte Percent A 1.1 % (0-0.5); Lymphocytes Absolute Auto 1.63 K/mm3 (0.9-3.2); Mean Corpuscular HGB Conc 33.9 g/dl (32-36); Mean Corpuscular Hemoglobin 32.9 pg (26-34); Mean Corpuscular Volume 97.1 fl (80-100); Nucleated Red Blood Cells Absolute Auto 0.000 K/mm3 (0.0-0.012); Nucleated Red Blood Cells Perc 0.0 % (0.0-0.2); Platelet Count Result 322 k/mm3 (150-375); Red Blood Count 4.47 M/mm3 (4.6-6.20); White Blood Count 7.5 K/mm3 (4.5-10.0)
[2025-04-09 16:51] LABS: Anion Gap 8 mmol/L (4-12); Blood Urea Nitrogen 17 mg/dL (9-20); Calcium 9.5 mg/dL (8.4-10.2); Carbon Dioxide 24 mmol/L (22-30); Chloride 105 mmol/L (98-107); Estimated CRCL calculation 98 ml/min; Estimated Glomerular Filt Rate > 60; Glucose 105 mg/dL (65-110); Potassium 4.5 mmol/L (3.4-5.0); Sodium 137 mmol/L (137-145)
--- NOTE | 2025-04-09 17:01 | ECG_ITS ---
Test Date: 2025-04-09 17:59:59 Measurements Intervals [place] Rate: 94 P: 12 AR: 164 QRS: 16 QRSD: 86 T: -6 QT: 361 QTc: 454 Interpretive Statements SINUS RHYTHM POSSIBLE LEFT ATRIAL ENLARGEMENT MINIMAL Q WAVES- HIGH LATERAL LEADS BASELINE ARTIFACT- I, II, III, AVR, AVL, AVF, V1-V6 BORDERLINE ECG No previous ECG available for comparison Electronically Signed On 04-09-2025 19:37:39 CDT by Chai Napoles D.O.
[2025-04-09 18:30] VITALS: BP 157/100; PULSE 96; RESP 16; O2SAT 97
== END 2025-04-09 18:32 | disposition home or self-care (01) ==
PROVIDERS: Emergency Provider Emergency Medicine
DX: I10 Essential (primary) hypertension (principal); F41.9 Anxiety disorder, unspecified; G89.29 Other chronic pain; M54.2 Cervicalgia; E03.9 Hypothyroidism, unspecified; F17.210 Nicotine dependence, cigarettes, uncomplicated; Z90.49 Acquired absence of other specified parts of digestive tract; R94.31 Abnormal electrocardiogram [ECG] [EKG]
CPT/HCPCS: 36415; 72040; 80048; 85025; 93005; 96360; 99283; A9270; J7120